=== PATIENT | female | born 1970 | race Caucasian/White ===

== ENCOUNTER 2021-05-01 10:11 | Outpatient (CLI) | payer OTHER | END 2021-05-01 10:23 | disposition home or self-care (01) | LOC: MAMO-SONO 10:11 | DX: R92.1 Mammographic calcification found on diagnostic imaging of breast (principal); Z12.31 Encounter for screening mammogram for malignant neoplasm of breast ==

== ENCOUNTER 2021-06-15 08:51 | Outpatient (CLI) | payer OTHER | END 2021-06-15 09:00 | disposition home or self-care (01) | LOC: MRI 08:51 | PROVIDERS: ATTEND Surgery | DX: M51.37 Other intervertebral disc degeneration, lumbosacral region (principal); M54.89 Other dorsalgia | CPT/HCPCS: 72148 ==